=== PATIENT | male | born 1945 | race Caucasian/White ===

== ENCOUNTER 2017-02-26 05:27 | Emergency (ER) | payer OTHER ==
[~2017-02-26] VITALS: Ht 162.6 cm; Wt 64.4 kg
[~2017-02-26 05:27] MED LIST: ASPIR 8181 MG PO; FLOMAX0.4 MG PO; NORCO 5-325 TA1 EACH PO; ONDANSETRON HCL4 M2 PO; PROSCAR 5MG TABL5 MG PO; PROVASTATIN PO; UNICOMPLEX M TA1 TA1 PO; VITAMIN D1000 UNI1 PO
[2017-02-26 06:14] LABS: ABSOLUTE NEUTROPHILS 2.7 thou/uL (1.4-8.2); BASOPHILS 0.7 % (0.0-2.0); EOSINOPHILS 7.7 % (0.0-3.0); HEMATOCRIT 45.4 % (42.0-52.0); HEMOGLOBIN 15.2 gm/dL (14.0-18.0); LYMPHOCYTES 31.1 % (24.0-44.0); MCH 31.4 pg (26.0-34.0); MCHC 33.4 g/dL (28.0-37.0); MONOCYTES 11.6 % (1.0-8.0); PLATELET COUNT 125 thou/uL (150-400); POLYS 48.9 % (36.0-66.0); RBC 4.83 mil/uL (4.50-6.00); RDW 12.8 % (10.5-14.5); URINE BILIRUBIN NEGATIVE (Negative); URINE BLOOD 1+ (Negative); URINE COLOR YELLOW; URINE GLUCOSE-RANDOM* NEGATIVE (Negative); URINE KETONES NEGATIVE (Negative); URINE LEUKOCYTES-REFLEX NEGATIVE (Negative); URINE PROTEIN (DIPSTICK) NEGATIVE (Negative); URINE UROBILINOGEN 0.2 E.U./dl (0.2-1.0); WBC 5.5 thou/uL (4.0-11.0)
[2017-02-26 06:17] LABS: MANUAL DIFF NO
[2017-02-26 06:22] LABS: POTASSIUM 3.9 mmol/L (3.5-5.1)
[2017-02-26 06:27] LABS: CASTS None Seen /LPF (None Seen); CRYSTALS None Seen /LPF (None Seen); SQUAMOUS None Seen /LPF (0-3); URINE RBC 3-10 Few /HPF (0-2); URINE WBC-REFLEX None Seen /HPF (0-5)
[2017-02-26 06:28] LABS: CALCIUM 9.3 mg/dL (8.5-10.1)
[2017-02-26] MEDS ORDERED: HYDROCODONE-AP1 EAC6 PO (07:25)
[2017-02-26] MEDS ORDERED: ZOFRAN ODT4 MG PO (07:25)
[2017-02-26 07:41] VITALS: BP 122/75
== END 2017-02-26 07:45 | disposition home or self-care (01) ==
LOC: ER 05:27
PROVIDERS: Emergency Medicine
DX: N20.1 Calculus of ureter (principal); F10.99 Alcohol use, unspecified with unspecified alcohol-induced disorder; Z87.442 Personal history of urinary calculi; Z98.890 Other specified postprocedural states

== ENCOUNTER 2018-07-03 15:12 | Inpatient (IN) | payer OTHER ==
[~2018-07-03] VITALS: Ht 162.6 cm; Wt 67.6 kg
[~2018-07-03 15:12] MED LIST changes: +HYDROCODONE-AP1 EAC6 PO; +ZOFRAN ODT4 MG PO
[2018-07-03 15:13] VITALS: BP 139/68
[2018-07-03 15:39] LABS: ABSOLUTE NEUTROPHILS 6.8 thou/uL (1.4-8.2); BASOPHILS 0.8 % (0.0-2.0); EOSINOPHILS 0.4 % (0.0-3.0); HEMATOCRIT 46.7 % (42.0-52.0); HEMOGLOBIN 15.6 gm/dL (14.0-18.0); LYMPHOCYTES 10.4 % (24.0-44.0); MCH 30.8 pg (26.0-34.0); MCHC 33.5 g/dL (28.0-37.0); MCV 92.1 fL (80.0-100.0); PLATELET COUNT 124 thou/uL (150-400); POLYS 82.4 % (36.0-66.0); RBC 5.07 mil/uL (4.50-6.00); RDW 12.9 % (10.5-14.5); WBC 8.3 thou/uL (4.0-11.0)
[2018-07-03 15:47] LABS: CALCIUM 9.6 mg/dL (8.5-10.1); CREATININE 0.9 mg/dL (0.7-1.3); POTASSIUM 3.8 mmol/L (3.5-5.1)
[2018-07-03 15:57] LABS: ALBUMIN 4.1 g/dL (3.4-5.0); TOTAL BILIRUBIN 0.5 mg/dL (<0.1-1.0); TOTAL PROTEIN 7.7 g/dL (6.4-8.2)
[2018-07-03 15:58] LABS: TROPONIN-I 8.73 ng/mL (<0.06)
--- NOTE | 2018-07-03 16:01 | EKG ---
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 : 1945 Requested By: Sadaf Cunningham Order Number: [id number] MD: Hugo Nickerson Measurements Intervals [place] Rate: 60 P: 38 [place]: 149 QRS: 77 QRSD: 104 T: 25 QT: 375 QTc: 375 Interpretive Statements Sinus rhythm Consider inferior infarct Minimal ST depression, lateral leads No previous ECG available for comparison Electronically Signed On 07-03-2018 16:01:31 PICK OUT HAND by Hugo Nickerson [email or web address] ��������������������������������������������� <ELECTRONICALLY SIGNED> ���������������������������������������� By: Hugo Nickerson MD ��������������������������������������������� 07/03/18 1601 1520 1520 Hugo Nickerson MD /RODERICK
[2018-07-03] MEDS ORDERED: PRAVACHOL40 MG PO (16:06)
[2018-07-03] MEDS ORDERED: CELEBREX 200 M200 M1 PO (16:07)
[2018-07-03 17:04] LABS: PROTIME 10.7 Seconds (9.3-11.4)
[2018-07-03 18:42] VITALS: BP 101/46
[2018-07-03 19:30] VITALS: BP 119/90
[2018-07-03 20:30] VITALS: BP 117/61
[2018-07-04] VITALS (13 sets, daily range): BP systolic 92–135; BP diastolic 51–72
--- NOTE | 2018-07-04 05:52 | NUR ---
PT IS AN ER ADMIT WITH A DIAGNOSIS OF NSTEMI. NO CHEST PAIN VERBALIZED. PT IS STABLE, ALERT AND ORIENTED WITH FAMILY AT BEDSIDE. PT IS ON A CONTINUOUS HEPARIN DRIP. APTT LAB WERE DRAWN, ADMISSION ASSESSMENT AND EDUCATION COMPLETED. PT IS STABLE. 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 PT IS STABLE DENIES ANY NEEDS AT THIS TIME.
[2018-07-04 06:22] LABS: HEMATOCRIT 43.2 % (42.0-52.0); HEMOGLOBIN 14.5 gm/dL (14.0-18.0); MCH 31.4 pg (26.0-34.0); MCHC 33.7 g/dL (28.0-37.0); MCV 93.2 fL (80.0-100.0); RBC 4.63 mil/uL (4.50-6.00); WBC 10.2 thou/uL (4.0-11.0)
[2018-07-04 06:41] LABS: CALCIUM 9.3 mg/dL (8.5-10.1); CREATININE 0.8 mg/dL (0.7-1.3); POTASSIUM 3.8 mmol/L (3.5-5.1)
[2018-07-04 06:43] LABS: TROPONIN-I 23.21 ng/mL (<0.06)
[2018-07-04 06:44] LABS: CHOLESTEROL 164 mg/dL (<200); HDL CHOLESTEROL 53 mg/dL (>40); LDL CHOLESTEROL 101 mg/dL (<100); TC:HDL 3.1 Ratio (Not establshd); TRIGLYCERIDE 52 mg/dL (<150); VLDL 10 mg/dL (<40)
--- NOTE | 2018-07-04 08:30 | EKG ---
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 : 1945 Requested By: Sadaf Cunningham Order Number: [id number] MD: Luca Lewis Measurements Intervals [place] Rate: 57 P: 35 [place]: 151 QRS: 38 QRSD: 92 T: 2 QT: 390 QTc: 380 Interpretive Statements Sinus rhythm Inferior infarct, old Compared to ECG 07/03/2018 15:20:10 ST (T wave) deviation no longer present Electronically Signed On 07-04-2018 8:30:21 DISCHARGE DOOR OPERATOR by Luca Lewis [email or web address] ��������������������������������������������� <ELECTRONICALLY SIGNED> ���������������������������������������� By: Luca Lewis MD, [facility] ��������������������������������������������� 07/04/18 0830 1601 1601 Luca Lewis MD, [facility] /EPI
--- NOTE | 2018-07-04 15:40 | CATHLAB ---
[facility] [address] [place] [address] INVASIVE PROCEDURE REPORT Name: GEORGIMAGI Brenda Room #: 212-P [facility] IN [facility]#: [id number] ������������� Admission: 07/03/18 ������������� Attend Phys: Freddy Major, Discharge: ��� ������������� ��� Date of : 45 Date of Service: 07/04/18 1540 �� Report #: [id number] �������� ��������������������������������������������[id number] THIS REPORT FOR: //name// APPROVED REPORT Study performed: 07/04/2018 07:16:59 Patient Details Patient Status: In-Patient Room #: The patient is a 73 year-old male Event Personnel Naresh Medrano Rn Ortho, Milana Ellis CVT Monitor, Carlos Loera RN, Vasyl Solomon Scrrosie Procedures Performed 86687 Initial Mod Sed Same Phys/QHP Gr5y 140560 07047 Mod Sed Same Phys/QHP Ea 227778 Left Heart Cath w/or w/o Coronaries [id number] LHC BMS Revasc Grafts Single PDA [id number] BMREVSVGSG Hemostasis w/ Mynx Art Access - R femoral artery* Indication Non-STEMI (>12 hrs to = 24 hrs), Dyspnea, Chest pain Risk Factors Hypercholesterolemia Procedure Narrative The Right Groin^ was infiltrated with 1% Lidocaine subcutaneous anesthesia. A PINNACLE 4FR Sheath #[id number] sheath was inserted into the RFA^. Coronary angiography was performed using coronary diagnostic catheters. The right coronary system was accessed and visualized with a JR4 catheter. The left coronary system was accessed and visualized with a JL4 catheter. The left ventricle was accessed and visualized with a angled pigtail catheter. Left ventricular/Aortic Valve gradient assessed via catheter pullback. Left ventriculogram was performed in 30 degree projection. Closure device was deployed with a 6 Fr MYNXGRIP 6/7F #[id number]. The patient tolerated the procedure well and there were no complications associated with the procedure. There was no hematoma. Intraoperative Conscious Sedation Sedation start time: 08:03 Case end Time: 08:43 [address] [place] [address] [place] [address] INVASIVE PROCEDURE REPORT Name: MAGI LAUREANO Room #: 212-P [facility]#: [id number] ������������� Admission: 07/03/18 ������������� Attend Phys: Freddy Major, Discharge: ��� ������������� ��� Date of : 45 Date of Service: 07/04/18 1540 �� Report #: [id number] �������� ��������������������������������������������[id number] Fluoro Time: 10.50 minutes Dose: DAP 7474.27 cGycm2 1013 mGy Contrast Type and Amount: Omnipaque 185 ml Coronary Angiography The patient's coronary anatomy is co- dominant. Diagnostic Cath Left Main This is a patent vessel, with no flow-limiting lesions. LAD This is a moderate size caliber vessel, traversing the anterior wall and terminating at the apex. There is mild disease in the proximal segment. Within the mid segment, there is a severe focal stenosis, 70-80%. Diagonal 1 This is a patent vessel, with no flow-limiting lesions. Circumflex This is a codominant vessel with mild disease proximally, 20%. OM1 This is a patent vessel, with no flow-limiting lesions. OM2 This is a patent vessel, with no flow-limiting lesions. OM3 This is a patent vessel, with no flow-limiting lesions. Right Coronary The RCA proper has mild disease in the mid segment, 20%. R PDA There is a total occlusion of the proximal segment. The mid and distal segments are partially filled via collateral circulation. Left Ventriculography The left ventricle is normal in size with decreased contractility. The left ventricular ejection fraction is estimated to be 40-45%. There is hypokinesis of the inferior wall. Hemodynamics The aortic pressure is 116/65 mmHg with a mean of 80 mmHg. The left ventricular pressure is 124/7 mmHg with a mean of mmHg. The left ventricular end diastolic pressure is 16 mmHg. PCI Technique Lesion Percutaneous coronary intervention was performed on the right posterior descending artery. The lesion stenosis prior to intervention was 100% with ROXANE 2 flow. A VISTA 6FR JR 4 #[id number] Guide Catheter was used to engage the ostium. A Luge Wire .014 x 182CM #[id number] Interventional Guidewire was used to cross the lesion. [facility] [address] [place] [address] INVASIVE PROCEDURE REPORT Name: MAGI LAUREANO Room #: 212-P [facility] IN M.R.#: [id number] ������������� Admission: 07/03/18 ������������� Attend Phys: Freddy Major, Discharge: ��� ������������� ��� Date of : 45 Date of Service: 07/04/18 1540 �� Report #: [id number] �������� ��������������������������������������������[id number] BALLOON DILATION A Balloon catheter Euphora RX 2.0 x 10 #[id number] was inserted and inflated up to 8.00atm for 12seconds. Additional Inflation: 8.00atm for 6seconds. Additional Inflation: 8.00atm for 10seconds. STENT DEPLOYMENT A bare metal stent INTEGRITY RX 2.5 X 14 #[id number] was inserted and inflated up to 12.00atm for 15seconds. Final angiography reveals 0 % stenosis with ROXANE 3 flow. Conclusion 1. Successful insertion of a bare metal stent into the total occlusion in the proximal PDA, with hinduism of ROXANE-3 blood flow. 2. Severe, focal stenosis in the mid LAD. Consider staged angioplasty procedure, if the patient tolerates dual antiplatelet therapy. 3. Codominant system. 4. Mild to moderate segmental LV dysfunction. 5. Recommend dual antiplatelet therapy and aggressive risk factor management. ��������������������������������������������� <ELECTRONICALLY SIGNED> ���������������������������������������� By: Naresh Medrano MD ��������������������������������������������� 07/04/18 1540 1540 154 Naresh Medrano MD /INF
--- NOTE | 2018-07-04 16:17 | NUR ---
patient resides with in independent home. Dtr at bedside and supportive. Patient reports currently reside in home with multiple steps but they are in process of moving to [facility]. 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 He reports independent with adls and self care. Family avail to assist at dc. Anticipate no dc needs casemgt following
--- NOTE | 2018-07-04 16:54 | EKG ---
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 : 1945 Requested By: Naresh Medrano Order Number: [id number] MD: Hugo Nickerson Measurements Intervals [place] Rate: 66 P: 56 [place]: 151 QRS: 53 QRSD: 95 T: 21 QT: 356 QTc: 373 Interpretive Statements Sinus rhythm Probable left atrial enlargement Borderline repolarization abnormality ST elevation inferiorly, unchanged from yesterday inferior Q waves, unchanged Compared to ECG 07/03/2018 16:01:07 Electronically Signed On 07-04-2018 16:53:57 HOMICIDE DETECTIVE by Hugo Nickerson [email or web address] ��������������������������������������������� <ELECTRONICALLY SIGNED> ���������������������������������������� By: Hugo Nickerson MD ��������������������������������������������� 07/04/18 1653 1043 1043 Hugo Nickerson MD /EPI
--- NOTE | 2018-07-04 17:48 | NUR ---
ASSESSMENT CHARTED. PT ALERT AND ORIENTED. HAD CARDIAC CATH THIS AM. RIGHT GROIN INCISION C/D/I. NO HEMATOMA NOTED. VSS. NSR ON TELI. PT DENIES HAVING PAIN OR DISCOMFORT. ORDERS NOTED. WILL CONTINUE TO MONITOR.
[2018-07-05] VITALS (8 sets, daily range): BP systolic 97–113; BP diastolic 59–67
[2018-07-05 00:08] LABS: GLYCOHEMOGLOBIN (HGB A1C) 5.6 % (4.8-5.6)
--- NOTE | 2018-07-05 03:06 | NUR ---
ASSUMED PT CARE AT 1900. PT VERY PLEASANT, A/OX4, VITAL SIGNS STABLE, ASSESSMENT CHARTED. NO COMPL;AINTS OF PAIN/CHEST PAIN, RIGHT GROIN SITE CLEAN, DRY, INTACT. PT RESTED WELL THROUGH THE NIGHT. PROGRESSING TOWARD PLAN OF CARE. POSSIBLE DISCHARGE IN AM. WILL CONTINUE TO MONITOR.
[2018-07-05 04:04] LABS: ALBUMIN 3.2 g/dL (3.4-5.0); CREATININE 0.9 mg/dL (0.7-1.3); POTASSIUM 3.6 mmol/L (3.5-5.1); TOTAL PROTEIN 6.4 g/dL (6.4-8.2)
[2018-07-05 04:14] LABS: HEMATOCRIT 40.3 % (42.0-52.0); HEMOGLOBIN 13.8 gm/dL (14.0-18.0); MCH 31.8 pg (26.0-34.0); MCHC 34.3 g/dL (28.0-37.0); MCV 92.8 fL (80.0-100.0); RBC 4.34 mil/uL (4.50-6.00); RDW 13.1 % (10.5-14.5); WBC 8.1 thou/uL (4.0-11.0)
[2018-07-05 04:16] LABS: TROPONIN-I 10.29 ng/mL (<0.06)
--- NOTE | 2018-07-05 08:38 | EKG ---
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 Compared to ECG 07/04/2018 10:43:27 Electronically Signed On 07-05-2018 8:38:29 RUN LEAD by Hugo Nickerson [email or web address] ��������������������������������������������� <ELECTRONICALLY SIGNED> ���������������������������������������� By: Hugo Nickerson MD ��������������������������������������������� 07/05/18 0838 0655 0655 Hugo Nickerson MD /RODERICK
[2018-07-05] MEDS ORDERED: PLAVIX 75 MG TA75 M1 PO (11:38)
[2018-07-05] MEDS ORDERED: ATORVASTATIN CA40 MG PO (11:38)
[2018-07-05] MEDS ORDERED: TOPROL XL25 MG PO (11:39)
[2018-07-05] MEDS ORDERED: ASA5UEC PO (11:39)
--- NOTE | 2018-07-05 13:04 | NUR ---
ASSUMED CARE OF PT AT SHIFT CHANGE. ASSESSMENTS CHARTED. MEDS GIVEN PER JUL. PT ALERT AND ORIENTED, NO C/O PAIN, DENIES CHEST PAIN. RIGHT GROIN SITE CDI, NO HEMATOMA. NSR ON MONITOR. NO S/SX OF CARDIAC OR RESP DISTRESS NOTED. O2 SATS WNL ON ROOM AIR. DENIES ANY CONCERNS. DC ORDERS ACKNOWLEDGED/IMPLEMENTED. DC PAPERWORK EXPLAINED TO PT, COMMUNICATES UNDERSTANDING, SCRIPTS GIVEN, INFO SHEETS PRINTED. IV REMOVED, TELE REMOVED, PT LEFT UNIT AT APPROX 1240 WITH ALL BELONGINGS.
== END 2018-07-05 12:40 | disposition home or self-care (01) | DRG 248 ==
LOC: ER 15:12 → EROBS 16:20 → 2N 16:20
PROVIDERS: Internal Medicine Cardiovascular Disease; Nurse Practitioner Family; Nurse Practitioner Gerontology; ADMIT Internal Medicine
DX: I21.4 Non-ST elevation (NSTEMI) myocardial infarction (principal); E43 Unspecified severe protein-calorie malnutrition; K51.90 Ulcerative colitis, unspecified, without complications; I25.10 Atherosclerotic heart disease of native coronary artery without angina pectoris; N40.0 Benign prostatic hyperplasia without lower urinary tract symptoms; E78.5 Hyperlipidemia, unspecified; M19.90 Unspecified osteoarthritis, unspecified site; R73.9 Hyperglycemia, unspecified; R79.89 Other specified abnormal findings of blood chemistry; E55.9 Vitamin D deficiency, unspecified; Z87.442 Personal history of urinary calculi; Z79.899 Other long term (current) drug therapy
CPT/HCPCS: 10081; 10194